=== PATIENT | male | born 1980 | race Hispanic/Latino ===

== ENCOUNTER 2019-12-27 09:56 | Emergency (ER) | payer SELFPAY ==
[2019-12-27] MEDS ORDERED: NA CHLORIDE 0.9% 1,000 ML ONE (10:31)
[2019-12-27] MEDS ORDERED: FOLIC ACID 5 MG/ML VIAL ONE (10:33)
[2019-12-27 10:59] LABS: Absolute Lymphocytes (CBC) 2.4 K/uL (0.7-4.9); Basophils % 0.7 % (0-1.3); Hematocrit 48.5 % (39.6-49.0); MPV 8.5 fL (7.6-11.3); RBC Red Blood Cell Count 5.75 M/uL (4.33-5.43)
[2019-12-27 11:05] LABS: Protime INR 1.03
[2019-12-27 11:11] LABS: ALT/SGPT 27 U/L (12-78); AST/SGOT 19 U/L (15-37); Albumin 3.8 g/dL (3.4-5.0); Alkaline Phosphatase 64 U/L (45-117); BUN Blood Urea Nitrogen 12 mg/dL (7-18); Bicarbonate 24 mmol/L (21-32); Bilirubin Direct 0.2 mg/dL (0-0.2); Bilirubin Total 0.7 mg/dL (0.2-1.0); Glucose Level 85 mg/dL (74-106); Lipase 127 U/L (73-393); Magnesium 2.4 mg/dL (1.8-2.4); NT PRO-BNP 34 pg/mL (<125); Potassium 3.8 mmol/L (3.5-5.1); Protein, Total 8.2 g/dL (6.4-8.2); Sodium Level 137 mmol/L (136-145); Troponin (Emerg Dept Use Only) < 0.02 ng/mL (0.0-0.045)
--- NOTE | 2019-12-27 11:35 | RAD REPORT ---
EXAM DESCRIPTION: RAD - Chest Single View - 12/27/2019 11:18 am CLINICAL HISTORY: COUGH COMPARISON: <Comparisons> TECHNIQUE: AP portable chest image was obtained 12/27/2019 11:18 am . FINDINGS: Lungs are clear. Heart and vasculature are normal. No measurable pleural effusion and no p neumothorax. No acute bony abnormality seen. No acute aortic findings suspected. IMPRESSION: No acute cardiopulmonary process.
--- NOTE | 2019-12-27 11:55 | RAD REPORT ---
EXAM DESCRIPTION: - CP - 12/27/2019 11:30 am CLINICAL HISTORY: HEADACHE, stroke-like symptoms COMPARISON: No comparisons TECHNIQUE: Real-time sonographic evaluation of bilateral carotid and vertebral systems was performed . Johnson scale and Doppler interrogation were performed with waveform tracing bilaterally. FINDINGS: Normal high resistance waveforms are noted in both external carotid arteries. The common c arotid arteries and internal carotid arteries show normal low resistance waveforms. No significant plaque formation is seen. Peak systolic and end diastolic velocity values and the ICA/ CCA ratios are in the non-hemodynamically significant range. Antegrade flow seen in both vertebral arteries. Velocity values and ratios were recorded and are retained in the patient's imaging records. IMPRESSION: No significant atherosclerotic changes noted. No evidence of a hemodynamically significant stenosis.
--- NOTE | 2019-12-27 11:58 | RAD REPORT ---
EXAM DESCRIPTION: CT - Head Brain Wo Cont - 12/27/2019 11:47 am CLINICAL HISTORY: HEADACHE, blurred vision COMPARISON: No comparisons TECHNIQUE: Axial 5 mm thick images of the head were obtained without IV contrast. All CT scans are performed using dose optimization technique as appropriate and may include automated exposure control or mA/KV adjustment according to patient size. FINDINGS: No intracranial hemorrhage, mass, edema or shift of mid-line structures. No acute infarcti on changes seen. No abnormal extra-axial fluid collections. Ventricles are normal. Mastoid air cells and visualized portions of the paranasal sinuses are clear. No acute bony findings. Significant left deviation of the nasal septum noted. IMPRESSION: Negative non-contrast CT head examination.
--- NOTE | 2019-12-27 12:24 | RAD REPORT ---
EXAM DESCRIPTION: CT - Angio Aorta For Dissection - 12/27/2019 11:58 am CLINICAL HISTORY: Chest pain;Dyspnea COMPARISON: Portable chest December 27 TECHNIQUE: Dynamically enhanced 3 mm thick images of the chest, abdomen, and upper pelvis were obtai bear during administration of approximately 150mL Isovue 370 IV contrast. Sagittal and coronal reconst ruction images were generated using MIP and reviewed. Exam utilizes a protocol to evaluate entire cou rse of the aorta. All CT scans are performed using dose optimization technique as appropriate and may include automated exposure control or mA/KV adjustment according to patient size. FINDINGS: Aorta is normal in diameter with no dissection or other acute aortic findings. Reconstruct ion images show no significant findings. Pulmonary arteries are normal as well. No cardiomegaly, pericardial thickening or pericardial effusio n. No mass or infiltrate in the lung parenchyma. No pleural thickening, pleural effusion or pneumothorax . No abnormal mediastinal or hilar mass or lymphadenopathy seen. No chest wall mass or abnormal axillar y lymphadenopathy. Celiac, SMA and renal arteries show no suspicious findings. Solid abdominal viscera and bowel show no significant findings. Normal appendix identified. No mass or abnormal lymphadenopathy. No free air, free fluid or inflammatory stranding. No urinary bladder abnormality. Fat extends into the origin o f each inguinal canal. No acute component at either inguinal canal. No acute bone finding. Surgical changes are present at the lumbosacral junction. IMPRESSION: Negative CT scan of the aorta. No other significant findings on chest, abdomen and upper pelvis examination.
--- NOTE | 2019-12-27 12:31 | EDPHYS ---
Physician Documentation [facility] Name: Ang Nice Age: 39 yrs Sex: Male : 1980 Arrival Date: 12/27/2019 Time: 09:59 Bed 15 Private MD: ED Physician Scottie Page HPI: 12/27 10:24 This 39 yrs old Male presents to ER via Ambulatory with complaints of Head chano pain, Breathing Difficulty. 10:24 The patient has shortness of breath at rest, with light activity. Onset: The chano symptoms/episode began/occurred 3 day(s) ago. Duration: The symptoms are continuous, and are steadily getting worse. The patient's shortness of breath has no apparent modifying factors. Severity of symptoms: At their worst the symptoms were mild. Historical: - Allergies: 10:19 No Known Allergies; ss - Home Meds: 10:19 None [Active]; ss - PMHx: 10:19 Back pain; ss - PSHx: 10:19 back sx; ss - Immunization history:: Adult Immunizations not up to date, Adult Immunizations up to date. - Coronavirus screen:: The patient has NOT traveled to [place], [employer], or [place] in the past 14 days. The patient has NOT had contact with known/suspected case of Coronavirus? The patient has NOT traveled to [employer], [employer], or [place] in the past 14 days. Proceed with normal triage process as indicated. - Social history:: Smoking status: Patient denies any tobacco usage or history of. Smoking status: Patient reports the use of cigarette tobacco products, denies chronic smoking, but will smoke occasionally. - Family history:: not pertinent. - Ebola Screening: : Patient negative for fever greater than or equal to 101.5 degrees Fahrenheit, and additional compatible Ebola Virus Disease symptoms Patient denies exposure to infectious person Patient denies travel to an Ebola-affected area in the 21 days before illness onset No symptoms or risks identified at this time Patient denies exposure to infectious person Patient denies travel to an Ebola-affected area in the 21 days before illness onset. ROS: 10:24 Constitutional: Negative for fever, chills, and weight loss, ENT: Negative for injury, chano pain, and discharge, Neck: Negative for injury, pain, and swelling, Cardiovascular: Negative for chest pain, palpitations, and edema, Abdomen/GI: Negative for abdominal pain, nausea, vomiting, diarrhea, and constipation, Back: Negative for injury and pain, : Negative for injury, bleeding, discharge, and swelling, MS/Extremity: Negative for injury and deformity, Skin: Negative for injury, rash, and discoloration, Neuro: Negative for headache, weakness, numbness, tingling, and seizure, Psych: Negative for depression, anxiety, suicide ideation, homicidal ideation, and hallucinations, Allergy/Immunology: Negative for hives, rash, and allergies, Endocrine: Negative for neck swelling, polydipsia, polyuria, polyphagia, and marked weight changes, Hematologic/Lymphatic: Negative for swollen nodes, abnormal bleeding, and unusual bruising. 10:24 Eyes: Positive for visual disturbance. 10:24 Respiratory: Positive for shortness of breath. Exam: 10:24 Constitutional: This is a well developed, well nourished patient who is awake, alert, chano and in no acute distress. Head/Face: Normocephalic, atraumatic. ENT: Nares patent. No nasal discharge, no septal abnormalities noted. Tympanic membranes are normal and external auditory canals are clear. Oropharynx with no redness, swelling, or masses, exudates, or evidence of obstruction, uvula midline. Mucous membranes moist. Neck: Trachea midline, no thyromegaly or masses palpated, and no cervical lymphadenopathy. Supple, full range of motion without nuchal rigidity, or vertebral point tenderness. No Meningismus. Chest/axilla: Normal chest wall appearance and motion. Nontender with no deformity. No lesions are appreciated. Cardiovascular: Regular rate and rhythm with a normal S1 and S2. No gallops, murmurs, or rubs. Normal PMI, no JVD. No pulse deficits. Respiratory: Lungs have equal breath sounds bilaterally, clear to auscultation and percussion. No rales, rhonchi or wheezes noted. No increased work of breathing, no retractions or nasal flaring. Abdomen/GI: Soft, non-tender, with normal bowel sounds. No distension or tympany. No guarding or rebound. No evidence of tenderness throughout. Back: No spinal tenderness. No costovertebral tenderness. Full range of motion. Skin: Warm, dry with normal turgor. Normal color with no rashes, no lesions, and no evidence of cellulitis. MS/ Extremity: Pulses equal, no cyanosis. Neurovascular intact. Full, normal range of motion. Neuro: Awake and alert, GCS 15, oriented to person, place, time, and situation. Cranial nerves II-XII grossly intact. Motor strength 5/5 in all extremities. Sensory grossly intact. Cerebellar exam normal. Normal gait. Psych: Awake, alert, with orientation to person, place and time. Behavior, mood, and affect are within normal limits. 10:24 Eyes: Periorbital structures: appear normal, no acute changes, Pupils: no acute changes, equal, round, and reactive to light and accomodation, dark opacification left pupillary exam, Extraocular movements: intact throughout, Conjunctiva: normal, no acute changes, Corneas: are normal, Sclera: no appreciated abnormality, no acute changes, Anterior chamber: normal, no acute changes, Lids and lashes: appear normal, no acute changes, Nystagmus: is not appreciated, no acute changes. Vital Signs: 10:20 BP 127 / 87; Pulse 75; Resp 18; Temp 97.7; Pulse Ox 100% on R/A; ss 10:20 Weight 84.37 kg; Height 5 ft. 6 in. (167.64 cm); Pain 3/10; 10:20 Body Mass Index 30.02 (84.37 kg, 167.64 cm) MDM: 10:02 Patient medically screened. [facility] 10:29 Data reviewed: vital signs, nurses notes, lab test result(s), EKG, radiologic studies, [facility] CT scan, doppler. 12/27 10:22 Order name: Basic Metabolic Panel; Complete Time: 11:36 [facility] 12/27 10:22 Order name: CBC with Diff; Complete Time: 11:36 [facility] 12/27 10:22 Order name: LFT's; Complete Time: 11:36 [facility] 12/27 10:22 Order name: Magnesium; Complete Time: 11:36 [facility] 12/27 10:22 Order name: NT PRO-BNP; Complete Time: 11:36 [facility] 12/27 10:22 Order name: PT-INR; Complete Time: 11:36 [facility] 12/27 10:22 Order name: Troponin (emerg Dept Use Only); Complete Time: 11:36 [facility] 12/27 10:22 Order name: XRAY Chest (1 view); Complete Time: 11:36 [facility] 12/27 10:22 Order name: US Carotid Artery Bilateral; Complete Time: 12:23 [facility] 12/27 10:22 Order name: D-Dimer; Complete Time: 11:36 [facility] 12/27 10:24 Order name: Lipase; Complete Time: 11:36 [facility] 12/27 10:24 Order name: Asprin; Complete Time: 11:36 [facility] 12/27 10:24 Order name: Tylenol Level; Complete Time: 11:36 [facility] 12/27 10:22 Order name: EKG; Complete Time: 10:24 [facility] 12/27 10:22 Order name: Cardiac monitoring; Complete Time: 10:47 [facility] 12/27 10:22 Order name: EKG - Nurse/Tech; Complete Time: 10:47 [facility] 12/27 10:22 Order name: IV Saline Lock; Complete Time: :47 [facility] 12/27 10:22 Order name: Labs collected and sent; Complete Time: 10:47 [facility] 12/27 10:22 Order name: O2 Per Protocol; Complete Time: 10:47 [facility] 12/27 10:22 Order name: O2 Sat Monitoring; Complete Time: 10:47 [facility] 12/27 10:22 Order name: CT Head Brain wo Cont; Complete Time: 12:23 [facility] 12/27 10:30 Order name: CT Aorta for Dissection: ro pe, dissection chano Administered Medications: 11:20 Drug: NS 0.9% 1000 ml Route: IV; Rate: 1 bolus; Site: left antecubital; sg 11:20 Drug: foLIC Acid 1 mg Route: IVPB; Site: left antecubital; sg 12:00 Follow up: Response: No adverse reaction; IV Status: Completed infusion sg Disposition: 12/27/19 12:31 Discharged to Home. Impression: Anxiety disorder, unspecified, Vision sensitivity deficiencies, Headache. - Condition is Stable. - Discharge Instructions: Blurred Vision, Adult, General Headache Without Cause, Shortness of Breath, Shortness of Breath, [id number], General Headache Without Cause, [id number]. - Medication Reconciliation Form, Thank You Letter, Antibiotic Education, Prescription Opioid Use form. - Follow up: Zohaib Williamson MD; When: Tomorrow; Reason: Recheck today's complaints, Continuance of care, Re-evaluation by your physician. - Problem is new. - Symptoms have improved. Signatures: Dispatcher [employer] EDSilvio Villaseñor RN RN Scottie Jones MD MD cha Smirch, Shelby, RN RN ss Corrections: (The following items were deleted from the chart) 10:20 10:20 Allergies: No Known Allergies; ss ss 10:20 10:20 Home Meds: None; ss ss 10:20 10:20 PMHx: Back pain; ss ss 10:20 10:20 PSHx: None; ss ss 13:24 12:31 12/27/2019 12:31 Discharged to Home. Impression: Anxiety disorder, unspecified; ss Vision sensitivity deficiencies; Headache. Condition is Stable. Forms are Medication Reconciliation Form, Thank You Letter, Antibiotic Education, Prescription Opioid Use. Follow up: Zohaib Williamson; When: Tomorrow; Reason: Recheck today's complaints, Continuance of care, Re-evaluation by your physician. Problem is new. Symptoms have improved. chano
--- NOTE | 2019-12-27 12:31 | ER ---
Nurse's Notes [facility] Name: Ang Nice Age: 39 yrs Sex: Male : 1980 Arrival Date: 12/27/2019 Time: 09:59 Bed 15 Private MD: Diagnosis: Anxiety disorder, unspecified;Vision sensitivity deficiencies;Headache Presentation: 12/27 10:17 Presenting complaint: Patient states: Starting Saturday, hes had a headache with blurred ss vision to L eye that comes and goes, reports having shortness of breath that is intermittent as well. Transition of care: patient was not received from another setting of care. Onset of symptoms was December 27, 2019. Risk Assessment: Do you want to hurt yourself or someone else? Patient reports no desire to harm self or others. Initial Sepsis Screen: Does the patient meet any 2 criteria? No. Patient's initial sepsis screen is negative. Does the patient have a suspected source of infection? No. Patient's initial sepsis screen is negative. Care prior to arrival: None. 10:17 Method Of Arrival: Ambulatory ss 10:17 Acuity: CATRACHITA 3 ss Historical: - Allergies: 10:19 No Known Allergies; ss - Home Meds: 10:19 None [Active]; ss - PMHx: 10:19 Back pain; ss - PSHx: 10:19 back sx; ss - Immunization history:: Adult Immunizations not up to date, Adult Immunizations up to date. - Coronavirus screen:: The patient has NOT traveled to [place], [employer], or [place] in the past 14 days. The patient has NOT had contact with known/suspected case of Coronavirus? The patient has NOT traveled to [place], [employer], or [email or web address] in the past 14 days. Proceed with normal triage process as indicated. - Social history:: Smoking status: Patient denies any tobacco usage or history of. Smoking status: Patient reports the use of cigarette tobacco products, denies chronic smoking, but will smoke occasionally. - Family history:: not pertinent. - Ebola Screening: : Patient negative for fever greater than or equal to 101.5 degrees Fahrenheit, and additional compatible Ebola Virus Disease symptoms Patient denies exposure to infectious person Patient denies travel to an Ebola-affected area in the 21 days before illness onset No symptoms or risks identified at this time Patient denies exposure to infectious person Patient denies travel to an Ebola-affected area in the 21 days before illness onset. Screenin:20 Abuse screen: Denies threats or abuse. Denies injuries from another. Nutritional sg screening: No deficits noted. Tuberculosis screening: No symptoms or risk factors identified. Never had TB. Fall Risk None identified. Assessment: 10:30 General: Appears in no apparent distress. well groomed, well developed, well nourished, sg Behavior is calm, cooperative, appropriate for age. Pain: Complains of pain in head Quality of pain is described as throbbing. Neuro: Level of Consciousness is awake, alert, obeys commands, Oriented to person, place, time, Speech is normal, Facial symmetry appears normal, Reports headache in entire frontal area. Cardiovascular: Patient's skin is warm and dry. Chest pain is denied. Respiratory: Airway is patent Respiratory effort is even, unlabored, Breath sounds are clear. GI: Abdomen is round non-distended, Reports tolerance of fluids, tolerance of food. : No signs and/or symptoms were reported regarding the genitourinary system. EENT: No signs and/or symptoms were reported regarding the EENT system. Derm: Skin is pink, warm \T\ dry. Musculoskeletal: Circulation, motion, and sensation intact. Range of motion: intact in all extremities. Vital Signs: 10:20 BP 127 / 87; Pulse 75; Resp 18; Temp 97.7; Pulse Ox 100% on R/A; ss 10:20 Weight 84.37 kg; Height 5 ft. 6 in. (167.64 cm); Pain 3/10; ss 10:20 Body Mass Index 30.02 (84.37 kg, 167.64 cm) ED Course: 09:59 Patient arrived in ED. mr 09:59 Scottie Page MD is Attending Physician. chano 10:19 Triage completed. ss 10:19 Arm band placed on. ss 10:21 Silvio Flores, BRETT is Primary Nurse. sg 10:30 Patient has correct armband on for positive identification. Bed in low position. Side sg rails up X2. Pulse ox on. NIBP on. 10:46 Initial lab(s) drawn, by me, sent to lab. Inserted saline lock: 22 gauge in left jb1 antecubital area, using aseptic technique. Blood collected. 10:54 Radiology exam delayed due to lab results not completed at this time. (BUN/Creatinine). mw3 11:20 XRAY Chest (1 view) In Process Unspecified. EDMS 11:30 Ultrasound completed. Patient tolerated well. sg3 11:31 US Carotid Artery Bilateral In Process Unspecified. EDMS 11:48 CT Head Brain wo Cont In Process Unspecified. EDMS 11:59 CT completed. Patient tolerated procedure well. Patient moved back from CT. bq 11:59 CT Aorta for Dissection: ro pe, dissection In Process Unspecified. EDMS 12:30 Zohaib Williamson MD is Referral Physician. chano 13:20 No provider procedures requiring assistance completed. IV discontinued, intact, sg bleeding controlled, No redness/swelling at site. Pressure dressing applied. Administered Medications: 11:20 Drug: NS 0.9% 1000 ml Route: IV; Rate: 1 bolus; Site: left antecubital; sg 11:20 Drug: foLIC Acid 1 mg Route: IVPB; Site: left antecubital; sg 12:00 Follow up: Response: No adverse reaction; IV Status: Completed infusion sg Outcome: 12:31 Discharge ordered by . chano 13:20 Discharged to home ambulatory, with family. sg 13:20 Condition: good 13:20 Discharge instructions given to patient, Instructed on discharge instructions, follow up and referral plans. medication usage, safety practices, Demonstrated understanding of instructions, follow-up care. 13:20 Discharged to pt instructions provided in bruneian by Kerline WEST sg 13:24 Patient left the ED. ss Signatures: Dispatcher [employer] EDConner Rg jb1 Silvio Flores RN RN sg Anderson, Corey, MD MD cha Rivera, Mary mr ElfegosonaliBree Shelby, RN RN ss Godinez, Sarah sg3 Maritza Jean mw3 Corrections: (The following items were deleted from the chart) 10:19 10:17 Presenting complaint: Patient states: Starting Saturday, hes had a headache with ss blurred vision that comes and goes, reports having shortness of breath that is intermittent as well, denies any chest pain, denies N/V/D, reports feels anxious at times. ss 10:20 10:20 Allergies: No Known Allergies; ss ss 10:20 10:20 Home Meds: None; ss ss 10:20 10:20 PMHx: Back pain; ss ss 10:20 10:20 PSHx: None; ss ss
[2019-12-27 13:38] VITALS: BP 127/87; TEMP 97.7; O2SAT 100
--- NOTE | 2019-12-28 05:27 | EKG ---
Test Date: 2019-12-27 Test Time: 10:36:07 Embedded Linux Engineer: SWG MEASUREMENT RESULTS: Intervals: Rate: 78 LA: 144 QRSD: 94 QT: 372 QTc: 424 [place]: P: 28 LA: 144 QRS: 88 T: 25 INTERPRETIVE STATEMENTS: Normal sinus rhythm Normal ECG No previous ECG available for comparison Electronically Signed On 12-28-19 05:26:44 [facility] by Rudy Cole
== END 2019-12-27 13:24 | disposition home or self-care (01) ==
LOC: ER 09:56
DX: F41.9 Anxiety disorder, unspecified (principal); H53.72 Impaired contrast sensitivity; Z72.0 Tobacco use
CPT/HCPCS: 36415; 70450; 71045; 71275; 74175; 80048; 80076; 80329; 83690; 83735; 83880; 84484; 85025; 85379; 85610; 93005; 93880; 96365; 99284; J7030; Q9967